=== PATIENT | male | born 1945 | race Two or more races ===

== ENCOUNTER 2022-02-26 14:02 | Outpatient (REF) | payer OTHER, SELFPAY ==
[2022-02-26 14:50] LABS: Anion Gap 16 (12-20); Blood Urea Nitrogen 18 mg/dL (9-16); Carbon Dioxide 26 mmol/L (22-29); Chloride 104 mmol/L (96-108); Estimated Glomerular Filt Rate > 60; Glucose Random 97 mg/dL (60-115); Potassium 4.7 mmol/L (3.3-5.1); Sodium 141 mmol/L (135-145)
[2022-02-26 15:51] LABS: Folate 9.6 ng/mL (> or = 4.0); Vitamin B12 242 pg/mL (200-900)
[2022-02-26 15:56] LABS: T4 Thyroxine 7.9 ug/dL (4.5-12.0)
[2022-02-27 18:47] LABS: Homocysteine 11.1 umol/L (<11.4)
== END 2022-02-26 14:03 | disposition home or self-care (01) ==
LOC: HO.LAB 14:02
PROVIDERS: Visit Provider Psychiatry & Neurology Neurology
DX: G30.9 Alzheimer's disease, unspecified (principal)
CPT/HCPCS: 36415; 80048; 82607; 82746; 83090; 84436; 84443

== ENCOUNTER 2022-03-23 08:46 | Outpatient (REF) | payer OTHER, SELFPAY ==
--- NOTE | ~2022-03-23 | CT_ITS ---
EXAMINATION: CT HEAD WITHOUT CONTRAST CLINICAL INFORMATION: 77-year-old with Alzheimer's disease COMPARISON: None TECHNIQUE: Contiguous axial imaging was performed from the skull base to vertex without intravenous administration of contrast. This CT examination was performed using dose optimization techniques as appropriate, variously including the following: *Automated exposure control *Adjustment of mA and/or kV according to patient size (this includes techniques or standardized protocols for targeted exams where dose is matched to indication/reason for exam; i.e. extremities or head) *Use of iterative reconstruction technique DLP: 629 mGy-cm FINDINGS: Brain Volume: Unremarkable within the limitations of a qualitative assessment for the patient's age. Structural: No malformations. Brain and Meninges: No evidence for hemorrhage, acute territorial infarct, extra-axial fluid collection, space-occupying process or mass effect. [place]-white matter interface is preserved. Small patchy zones of the subtle hypodensity in the subcortical frontal white matter bilaterally are noted, likely reflecting foci of chronic ischemic microangiopathy in a patient of this age. Otherwise normal brain parenchymal attenuation. Ganglionic structures and brainstem appear intact, accounting for artifact at the skull base. There are mural calcifications of both carotid siphons. Ventricles and Subarachnoid Spaces: The ventricular system and subarachnoid spaces appear within normal limits without hydrocephalus. Orbital Structures: Grossly unremarkable within the limitations of the study. Osseous Structures, Sinuses/Mastoids, Extracranial Soft Tissues: Osseous structures appear intact. The mastoids and middle ear cavities are unopacified. There is moderate mucosal thickening lining the ethmoid septae bilaterally with mucosal thickening and probable retained secretions in the sphenoid sinus on the left with an occluded left sphenoid ostium and mild mucosal thickening in the sphenoid sinus on the right. There is partially imaged mucosal thickening in the maxillary sinuses bilaterally with mild sinusoidal nasal septal deviation. The visualized extra cranial soft tissue structures appear grossly unremarkable. CT/CT head/brain wo IV con IMPRESSION: 1. No acute intracranial process. No evidence for hemorrhage, acute territorial infarct, extra-axial fluid collection, space-occupying process, mass effect or hydrocephalus. 2. 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 3. Paranasal sinus inflammatory changes as discussed above.
== END 2022-03-23 08:47 | disposition home or self-care (01) ==
LOC: HO.CT 08:46
PROVIDERS: Visit Provider Psychiatry & Neurology Neurology
DX: G30.9 Alzheimer's disease, unspecified (principal)
CPT/HCPCS: 70450